=== PATIENT | male | born 1975 ===

== ENCOUNTER → 2018-10-04 21:05 | Outpatient (REF) | payer OTHER, SELFPAY ==
[2018-10-04 21:59] LABS: Add Manual Diff / Slide Review NO; Eosinophils Percent Auto 1.6 % (2-4); Hematocrit 48.6 % (41-53); Hemoglobin 16.1 g/dL (13.5-17.5); Lymphocytes Percent Auto 35.3 % (25-40); Mean Corpuscular HGB Conc 33.1 % (30-36); Mean Corpuscular Hemoglobin 32.3 PG (26-34); Mean Corpuscular Volume 97.7 fL (80-100); Monocytes Percent Auto 10.5 % (3-14); Neutrophils Absolute Auto 2500 /uL (3000-5900); Neutrophils Percent Auto 51.6 % (50-75); Platelet Count 223 X10^3/uL (150-400); Red Blood Cell Count 4.97 X10^6/uL (4.5-5.9); Red Cell Distribution Width 13.7 % (11.6-14.8); White Blood Cell Count 4.8 X10^3/uL (4.5-11.0)
[2018-10-05 01:14] LABS: Free T4, Direct Thyroxine 1.09 ng/dL (0.78-2.19)
[2018-10-05 01:28] LABS: Thyroid Stimulating Hormone 3.42 uIU/mL (0.47-4.68)
[2018-10-06 15:47] LABS: Estradiol 26 pg/mL (< 40)
[2018-10-06 19:09] LABS: Sex Hormone Binding Globulin 40 nmol/L (10-50)
[2018-10-07 14:36] LABS: PSA Total 0.45 ng/mL (< 4.01)
[2018-10-08 16:01] LABS: Triiodothyronine T3 Reverse 19 ng/dL (8-25)
[2018-10-08 19:35] LABS: Testosterone Free 23.3 pg/mL (35.0-155.0); Testosterone Total 229 ng/dL (250-1100)
== END ==
LOC: LAB 21:05
PROVIDERS: Visit Provider Naturopath
DX: E29.1 Testicular hypofunction (principal); R00.1 Bradycardia, unspecified
CPT/HCPCS: 82670; 84153; 84154; 84270; 84402; 84403; 84439; 84443; 84481; 84482; 85025

== ENCOUNTER → 2019-01-03 21:43 | Outpatient (REF) | payer OTHER, SELFPAY ==
[2019-01-03 22:14] LABS: Add Manual Diff / Slide Review NO; Basophils Absolute Auto 0 /uL (0-100); Basophils Percent Auto 0.7 % (0-2); Eosinophils Absolute Auto 100 /uL (0-450); Eosinophils Percent Auto 1.7 % (2-4); Hematocrit 49.1 % (41-53); Hemoglobin 16.2 g/dL (13.5-17.5); Lymphocytes Absolute Auto 1400 /uL (1100-4500); Lymphocytes Percent Auto 28.5 % (25-40); Mean Corpuscular HGB Conc 33.1 % (30-36); Mean Corpuscular Hemoglobin 32.6 PG (26-34); Mean Corpuscular Volume 98.5 fL (80-100); Monocytes Absolute Auto 600 /uL (0-900); Monocytes Percent Auto 11.3 % (3-14); Neutrophils Absolute Auto 2900 /uL (1500-7000); Neutrophils Percent Auto 57.8 % (50-75); Platelet Count 177 X10^3/uL (150-400); Red Blood Cell Count 4.98 X10^6/uL (4.5-5.9); Red Cell Distribution Width 14.5 % (11.6-14.8)
[2019-01-03 22:22] LABS: Alanine Aminotransferase 50 IU/L (21-72); Albumin 4.7 g/dL (3.5-5.0); Albumin Globulin Ratio 1.9 (1.0-2.8); Alkaline Phosphatase 71 U/L (38-126); Aspartate Aminotransferase 39 IU/L (17-59); BUN Creatinine Ratio 15.5 (6-22); Bilirubin Total 0.7 mg/dL (0.2-1.3); Blood Urea Nitrogen 17 mg/dL (9-20); Carbon Dioxide 31 mmol/L (22-32); Chloride 96 mmol/L (98-107); Estimated Glomerular Filt Rate > 60.0 mL/min (>60); Globulin 2.5 g/dL (1.7-4.1); Glucose 92 mg/dL (70-100); HEMOLYSIS < 15 (0-50); Potassium 4.4 mmol/L (3.4-5.1); Sodium 138 mmol/L (137-145); Total Protein 7.2 g/dL (6.3-8.2)
[2019-01-06 10:02] LABS: Estradiol 27 pg/mL (< 40)
[2019-01-07 16:35] LABS: PSA Total 0.49 ng/mL (< 4.01)
== END ==
LOC: LAB 21:43
PROVIDERS: Visit Provider Naturopath
DX: E29.1 Testicular hypofunction (principal); L20.9 Atopic dermatitis, unspecified
CPT/HCPCS: 36415; 80053; 82670; 84153; 84154; 84270; 84402; 84403; 85025